=== PATIENT | male | born 1965 | race African-American/Black ===

== ENCOUNTER 2021-01-15 10:26 | Inpatient (IN) | payer OTHER ==
[2021-01-15 11:18] VITALS: BMI 33.3
[2021-01-15] MEDS ORDERED: BISMUTH SUBSALICYLATE 524 MG/30 ML PO PRN (11:47)
[2021-01-15] MEDS ORDERED: IBUPROFEN 400 MG TABLET (FP) PO PRN (11:47)
[2021-01-15] MEDS ORDERED: NICOTINE 10 MG CARTRIDGE (INHALER) IH PRN (11:47)
[2021-01-15] MEDS ORDERED: MAGNESIUM HYDROX 2400MG/30ML ORAL SUSPENSION 30 ML CUP PO PRN (11:47)
[2021-01-15] MEDS ORDERED: MAGNESIUM CITRATE 300 ML BOTTLE PO PRN (11:47)
[2021-01-15] MEDS ORDERED: ACETAMINOPHEN 325 MG TABLET (FP) PO PRN ×2 (11:47)
[2021-01-15] MEDS ORDERED: ONDANSETRON *ODT* 4 MG TABLET SL PRN (11:47)
[2021-01-15] MEDS ORDERED: MAG HYDROX/AL HYDROX/SIMETH 30 ML UNIT-DOSE CUP PO PRN (11:47)
[2021-01-15] MEDS ORDERED: MENTHOL/PHENOL 1 EACH UD MM PRN (11:47)
[2021-01-15] MEDS ORDERED: diazePAM 5 MG TABLET PO PRN (13:04)
[2021-01-15] MEDS ORDERED: diazePAM 5 MG TABLET PO ONE (13:45)
[2021-01-15] MEDS: METHOCARBAMOL 500 MG TABLET PO PRN (13:47)
[2021-01-15] MEDS: PRENATAL VITAMINS W/ FOLIC ACID TABLET (FP) PO SCH (13:52)
[2021-01-15] MEDS ORDERED: hydrOXYzine PAMOATE 25 MG CAPSULE (FP) PO SCH (14:00)
[2021-01-15 14:33] LABS: HEMATOCRIT 43.1 % (35.4-49); HEMOGLOBIN 14.8 GM/dL (11.7-16.9); MCH 32.9 pg (25.7-33.7); MCHC 34.3 g/dl (32.0-35.9); MEAN CELL VOLUME 95.9 fl (80-96); MEAN PLT VOLUME 8.5 fl (7.5-11.1); PLATELET COUNT 291 10^3/uL (134-434); RBC 4.49 M/mm3 (4.00-5.60); RDW 16.1 % (11.9-15.9); WHITE BLOOD COUNT 6.6 K/mm3 (4.0-10.0)
[2021-01-15 14:47] LABS: ALBUMIN 3.2 g/dl (3.4-5.0); BLOOD UREA NITROGEN 11.7 mg/dL (7-18); CALCIUM 9.1 mg/dL (8.5-10.1)
[2021-01-15 14:48] LABS: BILIRUBIN,TOTAL 0.6 mg/dL (0.2-1)
[2021-01-15 14:50] LABS: CREATININE 1.1 mg/dL (0.55-1.3)
[2021-01-15 14:52] LABS: TOT PROT 6.6 g/dl (6.4-8.2)
[2021-01-15] MEDS: diazePAM 5 MG TABLET PO SCH ×2 (18:06→23:09)
[2021-01-15] MEDS: MELATONIN 5 MG TABLETS PO SCH (23:09)
[2021-01-15] MEDS: THIAMINE HCL 100 MG TABLET (FP) PO SCH (23:09)
[2021-01-16] MEDS: diazePAM 5 MG TABLET PO SCH ×4 (06:25→23:16)
[2021-01-16] MEDS: hydrOXYzine PAMOATE 25 MG CAPSULE (FP) PO PRN (10:34)
[2021-01-16] MEDS: PRENATAL VITAMINS W/ FOLIC ACID TABLET (FP) PO SCH (10:35)
[2021-01-16] MEDS: METHOCARBAMOL 500 MG TABLET PO PRN (23:15)
[2021-01-16] MEDS: MELATONIN 5 MG TABLETS PO SCH (23:15)
[2021-01-16] MEDS: THIAMINE HCL 100 MG TABLET (FP) PO SCH (23:16)
[2021-01-17] MEDS: diazePAM 5 MG TABLET PO SCH ×3 (06:45→23:09)
[2021-01-17] MEDS: PRENATAL VITAMINS W/ FOLIC ACID TABLET (FP) PO SCH (09:55)
[2021-01-17] MEDS: MELATONIN 5 MG TABLETS PO SCH (23:09)
[2021-01-17] MEDS: THIAMINE HCL 100 MG TABLET (FP) PO SCH (23:09)
[2021-01-18] MEDS: diazePAM 5 MG TABLET PO SCH ×2 (05:50→17:31)
[2021-01-18] MEDS: PRENATAL VITAMINS W/ FOLIC ACID TABLET (FP) PO SCH (10:24)
[2021-01-18] MEDS: THIAMINE HCL 100 MG TABLET (FP) PO SCH (22:39)
[2021-01-18] MEDS: MELATONIN 5 MG TABLETS PO SCH (22:39)
[2021-01-18] MEDS: hydrOXYzine PAMOATE 25 MG CAPSULE (FP) PO PRN (22:39)
[2021-01-19] MEDS ORDERED: diazePAM 5 MG TABLET PO ONE (06:00)
[2021-01-19 09:26] VITALS: BP 107/60; PULSE 86; TEMP 96.4
[2021-01-19] MEDS: PRENATAL VITAMINS W/ FOLIC ACID TABLET (FP) PO SCH (11:04)
== END 2021-01-19 11:49 | disposition home or self-care (01) | DRG 774 ==
LOC: YASAS 10:26 → Y3N 12:00
PROVIDERS: ADMIT Allergy & Immunology; ATTEND Allergy & Immunology
PROC: HZ2ZZZZ Detoxification Services for Substance Abuse Treatment (ICD-10-PCS; principal; 2021-01-15)
DX: F10.230 Alcohol dependence with withdrawal, uncomplicated (principal); F14.20 Cocaine dependence, uncomplicated; F17.210 Nicotine dependence, cigarettes, uncomplicated; F31.9 Bipolar disorder, unspecified; F43.10 Post-traumatic stress disorder, unspecified; E78.5 Hyperlipidemia, unspecified; J45.909 Unspecified asthma, uncomplicated; E66.9 Obesity, unspecified; Z68.33 Body mass index [BMI] 33.0-33.9, adult; I25.2 Old myocardial infarction; Z87.898 Personal history of other specified conditions
CPT/HCPCS: 36415; 80053; 85027; 86780; C9803; U0003; U0005

== ENCOUNTER 2022-01-04 13:48 | Inpatient (IN) | payer OTHER ==
[2022-01-04 14:57] VITALS: BMI 23.7
[2022-01-04] MEDS ORDERED: MAGNESIUM HYDROX 2400MG/30ML ORAL SUSPENSION 30 ML CUP PO PRN (16:33)
[2022-01-04] MEDS ORDERED: BENZOCAINE/MENTHOL (CHLORASEPTIC ) LOZENGE MM PRN (16:33)
[2022-01-04] MEDS ORDERED: DICYCLOMINE HCL 10 MG CAPSULE PO PRN (16:33)
[2022-01-04] MEDS ORDERED: MAG HYDROX/AL HYDROX/SIMETH 30 ML UNIT-DOSE CUP PO PRN (16:33)
[2022-01-04] MEDS ORDERED: MAGNESIUM CITRATE 300 ML BOTTLE PO PRN (16:33)
[2022-01-04] MEDS ORDERED: ONDANSETRON *ODT* 4 MG TABLET SL PRN (16:33)
[2022-01-04] MEDS ORDERED: BISMUTH SUBSALICYLATE 524 MG/30 ML PO PRN (16:33)
[2022-01-04] MEDS ORDERED: LOPERAMIDE HCL 2 MG CAPSULE PO PRN (16:33)
[2022-01-04] MEDS ORDERED: ACETAMINOPHEN 325 MG TABLET (FP) PO PRN ×2 (16:33)
[2022-01-04] MEDS ORDERED: NICOTINE 10 MG CARTRIDGE (INHALER) IH PRN (16:33)
[2022-01-04] MEDS ORDERED: IBUPROFEN 600 MG TABLET (FP) PO ONE (16:54)
[2022-01-04] MEDS: IBUPROFEN 600 MG TABLET (FP) PO PRN (16:57)
[2022-01-04] MEDS: MELATONIN 5 MG TABLETS PO SCH (23:04)
[2022-01-04] MEDS: hydrOXYzine PAMOATE 25 MG CAPSULE (FP) PO SCH ×2 (23:04→23:05)
[2022-01-04] MEDS: THIAMINE HCL 100 MG TABLET (FP) PO SCH (23:05)
[2022-01-05] MEDS: hydrOXYzine PAMOATE 25 MG CAPSULE (FP) PO SCH ×5 (07:36→22:49)
[2022-01-05] MEDS: PRENATAL VITAMINS W/ FOLIC ACID TABLET (FP) PO SCH (10:50)
[2022-01-05 13:32] LABS: HEMATOCRIT 45.1 % (35.4-49); HEMOGLOBIN 15.3 GM/dL (11.7-16.9); MCH 33.5 pg (25.7-33.7); MCHC 33.9 g/dl (32.0-35.9); MEAN CELL VOLUME 98.6 fl (80-96); MEAN PLT VOLUME 8.2 fl (7.5-11.1); PLATELET COUNT 285 10^3/uL (134-434); RBC 4.57 M/mm3 (4.00-5.60); RDW 14.5 % (11.9-15.9); WHITE BLOOD COUNT 5.4 K/mm3 (4.0-10.0)
[2022-01-05 13:36] LABS: ALBUMIN 3.2 g/dl (3.4-5.0); BLOOD UREA NITROGEN 12.5 mg/dL (7-18); CALCIUM 9.2 mg/dL (8.5-10.1)
[2022-01-05 13:39] LABS: BILIRUBIN,TOTAL 0.4 mg/dL (0.2-1); TOT PROT 6.4 g/dl (6.4-8.2)
[2022-01-05] MEDS ORDERED: LORazepam 1 MG TABLET PO PRN (14:38)
[2022-01-05] MEDS: LORazepam 2 MG TABLET PO SCH ×2 (18:09→22:49)
[2022-01-05] MEDS: IBUPROFEN 600 MG TABLET (FP) PO PRN (18:10)
[2022-01-05] MEDS: MELATONIN 5 MG TABLETS PO SCH (22:49)
[2022-01-05] MEDS: METHOCARBAMOL 500 MG TABLET PO PRN (22:49)
[2022-01-05] MEDS: THIAMINE HCL 100 MG TABLET (FP) PO SCH (22:49)
[2022-01-06] MEDS: hydrOXYzine PAMOATE 25 MG CAPSULE (FP) PO SCH ×5 (06:18→22:55)
[2022-01-06] MEDS: LORazepam 2 MG TABLET PO SCH ×4 (06:18→22:54)
[2022-01-06] MEDS: IBUPROFEN 400 MG TABLET (FP) PO PRN (10:32)
[2022-01-06] MEDS: PRENATAL VITAMINS W/ FOLIC ACID TABLET (FP) PO SCH (10:33)
[2022-01-06] MEDS: METHOCARBAMOL 500 MG TABLET PO PRN (17:45)
[2022-01-06] MEDS: THIAMINE HCL 100 MG TABLET (FP) PO SCH (22:55)
[2022-01-06] MEDS: MELATONIN 5 MG TABLETS PO SCH (22:56)
[2022-01-07] MEDS: hydrOXYzine PAMOATE 25 MG CAPSULE (FP) PO SCH ×5 (05:55→22:21)
[2022-01-07] MEDS: LORazepam 1 MG TABLET PO SCH ×4 (05:55→22:21)
[2022-01-07] MEDS: PRENATAL VITAMINS W/ FOLIC ACID TABLET (FP) PO SCH (10:34)
[2022-01-07] MEDS: IBUPROFEN 600 MG TABLET (FP) PO PRN (10:36)
[2022-01-07] MEDS: MELATONIN 5 MG TABLETS PO SCH (22:21)
[2022-01-07] MEDS: THIAMINE HCL 100 MG TABLET (FP) PO SCH (22:21)
[2022-01-08] MEDS ORDERED: LORazepam 0.5 MG TABLET PO PRN
[2022-01-08] MEDS: hydrOXYzine PAMOATE 25 MG CAPSULE (FP) PO SCH ×5 (07:58→22:49)
[2022-01-08] MEDS: LORazepam 0.5 MG TABLET PO SCH ×4 (07:58→22:49)
[2022-01-08] MEDS: IBUPROFEN 400 MG TABLET (FP) PO PRN (10:16)
[2022-01-08] MEDS: PRENATAL VITAMINS W/ FOLIC ACID TABLET (FP) PO SCH (10:16)
[2022-01-08] MEDS: THIAMINE HCL 100 MG TABLET (FP) PO SCH (22:49)
[2022-01-08] MEDS: MELATONIN 5 MG TABLETS PO SCH (22:49)
[2022-01-09] MEDS ORDERED: LORazepam 0.5 MG TABLET PO ONE (05:00)
[2022-01-09 06:17] VITALS: RESP 18
[2022-01-09] MEDS: hydrOXYzine PAMOATE 25 MG CAPSULE (FP) PO SCH ×2 (06:36→09:54)
[2022-01-09 09:34] VITALS: BP 103/62; PULSE 83; TEMP 97.8
[2022-01-09] MEDS: PRENATAL VITAMINS W/ FOLIC ACID TABLET (FP) PO SCH (09:54)
== END 2022-01-09 11:10 | disposition other institution (70) | DRG 774 ==
LOC: YASAS 13:48 → Y3N 17:11
PROVIDERS: ADMIT Allergy & Immunology; ATTEND Surgery
PROC: HZ2ZZZZ Detoxification Services for Substance Abuse Treatment (ICD-10-PCS; principal; 2022-01-04)
DX: F10.230 Alcohol dependence with withdrawal, uncomplicated (principal); F14.20 Cocaine dependence, uncomplicated; F17.210 Nicotine dependence, cigarettes, uncomplicated; F31.9 Bipolar disorder, unspecified; F43.10 Post-traumatic stress disorder, unspecified; E87.8 Other disorders of electrolyte and fluid balance, not elsewhere classified; E88.09 Other disorders of plasma-protein metabolism, not elsewhere classified; E78.5 Hyperlipidemia, unspecified; I25.2 Old myocardial infarction; Z68.23 Body mass index [BMI] 23.0-23.9, adult
CPT/HCPCS: 36415; 80053; 82435; 85027; 86780; 87811; C9803-CS; U0003; U0005

== ENCOUNTER 2022-01-09 11:27 | Inpatient (IN) | payer OTHER ==
[2022-01-09] MEDS ORDERED: MAGNESIUM CITRATE 300 ML BOTTLE PO PRN (13:06)
[2022-01-09] MEDS ORDERED: guaiFENesin 200 MG/10 ML 10 ML UNIT-DOSE CUPS PO PRN (13:06)
[2022-01-09] MEDS ORDERED: BENZOCAINE/MENTHOL (CHLORASEPTIC ) LOZENGE MM PRN (13:06)
[2022-01-09] MEDS ORDERED: MAG HYDROX/AL HYDROX/SIMETH 30 ML UNIT-DOSE CUP PO PRN (13:06)
[2022-01-09] MEDS ORDERED: ACETAMINOPHEN 325 MG TABLET (FP) PO PRN (13:06)
[2022-01-09] MEDS ORDERED: IBUPROFEN 400 MG TABLET (FP) PO PRN (13:06)
[2022-01-09] MEDS ORDERED: LOPERAMIDE HCL 2 MG CAPSULE PO PRN (13:06)
[2022-01-09] MEDS ORDERED: P-EPHED 60MG/TRIPROLIDI 2.5MG TABLET PO PRN (13:06)
[2022-01-09] MEDS ORDERED: MAGNESIUM HYDROX 2400MG/30ML ORAL SUSPENSION 30 ML CUP PO PRN (13:06)
[2022-01-09] MEDS: THIAMINE HCL 100 MG TABLET (FP) PO SCH (21:31)
[2022-01-09] MEDS: MELATONIN 5 MG TABLETS PO PRN (21:31)
[2022-01-10] MEDS: PRENATAL VITAMINS W/ FOLIC ACID TABLET (FP) PO SCH (09:58)
[2022-01-10] MEDS: ALBUTEROL SO4 HFA INHALER IH PRN (10:00)
[2022-01-10] MEDS: hydrOXYzine PAMOATE 50 MG CAPSULE (FP) PO PRN ×2 (10:59→21:50)
[2022-01-10] MEDS: THIAMINE HCL 100 MG TABLET (FP) PO SCH (21:50)
[2022-01-10] MEDS: QUEtiapine FUMARATE 50 MG TABLET PO SCH (21:51)
[2022-01-11] MEDS: PRENATAL VITAMINS W/ FOLIC ACID TABLET (FP) PO SCH (09:18)
[2022-01-11] MEDS: THIAMINE HCL 100 MG TABLET (FP) PO SCH (21:14)
[2022-01-11] MEDS: QUEtiapine FUMARATE 50 MG TABLET PO SCH (21:14)
[2022-01-11] MEDS: hydrOXYzine PAMOATE 50 MG CAPSULE (FP) PO PRN (21:15)
[2022-01-11] MEDS: MELATONIN 5 MG TABLETS PO PRN (21:15)
[2022-01-12] MEDS: PRENATAL VITAMINS W/ FOLIC ACID TABLET (FP) PO SCH (09:27)
[2022-01-12] MEDS: hydrOXYzine PAMOATE 50 MG CAPSULE (FP) PO PRN (13:33)
[2022-01-12] MEDS: MELATONIN 5 MG TABLETS PO PRN (21:15)
[2022-01-12] MEDS: THIAMINE HCL 100 MG TABLET (FP) PO SCH (21:15)
[2022-01-12] MEDS: QUEtiapine FUMARATE 50 MG TABLET PO SCH (21:17)
[2022-01-13] MEDS: PRENATAL VITAMINS W/ FOLIC ACID TABLET (FP) PO SCH (10:03)
[2022-01-13] MEDS: hydrOXYzine PAMOATE 50 MG CAPSULE (FP) PO PRN ×2 (10:03→21:12)
[2022-01-13] MEDS: THIAMINE HCL 100 MG TABLET (FP) PO SCH (21:11)
[2022-01-13] MEDS: MELATONIN 5 MG TABLETS PO PRN (21:11)
[2022-01-13] MEDS: QUEtiapine FUMARATE 50 MG TABLET PO SCH (21:11)
[2022-01-14] MEDS: PRENATAL VITAMINS W/ FOLIC ACID TABLET (FP) PO SCH (09:58)
[2022-01-14] MEDS: MELATONIN 5 MG TABLETS PO PRN (21:30)
[2022-01-14] MEDS: THIAMINE HCL 100 MG TABLET (FP) PO SCH (21:30)
[2022-01-14] MEDS: hydrOXYzine PAMOATE 50 MG CAPSULE (FP) PO PRN (21:30)
[2022-01-14] MEDS: QUEtiapine FUMARATE 50 MG TABLET PO SCH (21:32)
[2022-01-15] MEDS: PRENATAL VITAMINS W/ FOLIC ACID TABLET (FP) PO SCH (10:18)
[2022-01-15] MEDS: hydrOXYzine PAMOATE 50 MG CAPSULE (FP) PO PRN ×2 (10:18→21:17)
[2022-01-15] MEDS: THIAMINE HCL 100 MG TABLET (FP) PO SCH (21:17)
[2022-01-15] MEDS: MELATONIN 5 MG TABLETS PO PRN (21:17)
[2022-01-15] MEDS: QUEtiapine FUMARATE 50 MG TABLET PO SCH (21:18)
[2022-01-16] MEDS: PRENATAL VITAMINS W/ FOLIC ACID TABLET (FP) PO SCH (09:56)
[2022-01-16] MEDS ORDERED: NICOTINE 10 MG CARTRIDGE (INHALER) IH SCH ×2 (11:30→11:45)
[2022-01-16] MEDS: THIAMINE HCL 100 MG TABLET (FP) PO SCH (21:11)
[2022-01-16] MEDS: MELATONIN 5 MG TABLETS PO PRN (21:12)
[2022-01-16] MEDS: QUEtiapine FUMARATE 50 MG TABLET PO SCH (21:12)
[2022-01-16] MEDS: hydrOXYzine PAMOATE 50 MG CAPSULE (FP) PO PRN (21:13)
[2022-01-17] MEDS: PRENATAL VITAMINS W/ FOLIC ACID TABLET (FP) PO SCH (10:06)
[2022-01-17] MEDS: hydrOXYzine PAMOATE 50 MG CAPSULE (FP) PO PRN ×2 (10:06→21:10)
[2022-01-17] MEDS: THIAMINE HCL 100 MG TABLET (FP) PO SCH (21:10)
[2022-01-17] MEDS: MELATONIN 5 MG TABLETS PO PRN (21:10)
[2022-01-17] MEDS: QUEtiapine FUMARATE 50 MG TABLET PO SCH (21:16)
[2022-01-18] MEDS: hydrOXYzine PAMOATE 50 MG CAPSULE (FP) PO PRN ×2 (10:23→21:34)
[2022-01-18] MEDS: PRENATAL VITAMINS W/ FOLIC ACID TABLET (FP) PO SCH (10:23)
[2022-01-18] MEDS: ALBUTEROL SO4 HFA INHALER IH PRN (11:41)
[2022-01-18] MEDS: THIAMINE HCL 100 MG TABLET (FP) PO SCH (21:34)
[2022-01-18] MEDS: QUEtiapine FUMARATE 50 MG TABLET PO SCH (21:34)
[2022-01-18] MEDS: MELATONIN 5 MG TABLETS PO PRN (21:35)
[2022-01-19] MEDS: PRENATAL VITAMINS W/ FOLIC ACID TABLET (FP) PO SCH (10:09)
[2022-01-19] MEDS: hydrOXYzine PAMOATE 50 MG CAPSULE (FP) PO PRN ×2 (10:09→21:32)
[2022-01-19] MEDS: QUEtiapine FUMARATE 50 MG TABLET PO SCH (21:32)
[2022-01-19] MEDS: MELATONIN 5 MG TABLETS PO PRN (21:32)
[2022-01-19] MEDS: THIAMINE HCL 100 MG TABLET (FP) PO SCH (21:32)
[2022-01-20] MEDS: PRENATAL VITAMINS W/ FOLIC ACID TABLET (FP) PO SCH (09:59)
[2022-01-20] MEDS: MELATONIN 5 MG TABLETS PO PRN (21:23)
[2022-01-20] MEDS: QUEtiapine FUMARATE 50 MG TABLET PO SCH (21:23)
[2022-01-20] MEDS: THIAMINE HCL 100 MG TABLET (FP) PO SCH (21:23)
[2022-01-21] MEDS: PRENATAL VITAMINS W/ FOLIC ACID TABLET (FP) PO SCH (09:50)
[2022-01-21] MEDS: hydrOXYzine PAMOATE 50 MG CAPSULE (FP) PO PRN ×2 (09:51→21:08)
[2022-01-21] MEDS: MELATONIN 5 MG TABLETS PO PRN (21:08)
[2022-01-21] MEDS: QUEtiapine FUMARATE 50 MG TABLET PO SCH (21:08)
[2022-01-21] MEDS: THIAMINE HCL 100 MG TABLET (FP) PO SCH (21:08)
[2022-01-22] MEDS: ALBUTEROL SO4 HFA INHALER IH PRN (09:48)
[2022-01-22] MEDS: PRENATAL VITAMINS W/ FOLIC ACID TABLET (FP) PO SCH (09:48)
[2022-01-22] MEDS: hydrOXYzine PAMOATE 50 MG CAPSULE (FP) PO PRN (09:48)
[2022-01-22] MEDS: MELATONIN 5 MG TABLETS PO PRN (21:18)
[2022-01-22] MEDS: THIAMINE HCL 100 MG TABLET (FP) PO SCH (21:18)
[2022-01-22] MEDS: QUEtiapine FUMARATE 50 MG TABLET PO SCH (21:19)
[2022-01-23 07:16] VITALS: BP 118/73; PULSE 86; RESP 16; TEMP 98
== END 2022-01-23 08:50 | disposition home or self-care (01) | DRG 772 ==
LOC: YASAS 11:27 → Y3E 11:31
PROVIDERS: ADMIT Allergy & Immunology; ATTEND Psychiatry & Neurology Pain Medicine
PROC: HZ42ZZZ Group Counseling for Substance Abuse Treatment, Cognitive-Behavioral (ICD-10-PCS; principal; 2022-01-09)
DX: F10.20 Alcohol dependence, uncomplicated (principal); F14.20 Cocaine dependence, uncomplicated; F17.210 Nicotine dependence, cigarettes, uncomplicated; F31.9 Bipolar disorder, unspecified; F43.10 Post-traumatic stress disorder, unspecified; J45.909 Unspecified asthma, uncomplicated; E78.5 Hyperlipidemia, unspecified; I25.2 Old myocardial infarction

== ENCOUNTER 2022-10-03 21:25 | Inpatient (IN) | payer OTHER ==
[2022-10-03 22:07] VITALS: BMI 29.8
[2022-10-03] MEDS ORDERED: chlordiazePOXIDE HCL 25 MG CAPSULE PO PRN (23:59)
[2022-10-04] MEDS ORDERED: chlordiazePOXIDE HCL 25 MG CAPSULE ONE ×3 (00:08→11:02)
[2022-10-04] MEDS ORDERED: BENZOCAINE/MENTHOL (CHLORASEPTIC ) LOZENGE MM PRN (00:09)
[2022-10-04] MEDS ORDERED: MAGNESIUM HYDROX 2400MG/30ML ORAL SUSPENSION 30 ML CUP PO PRN (00:09)
[2022-10-04] MEDS ORDERED: IBUPROFEN 600 MG TABLET (FP) PO PRN (00:09)
[2022-10-04] MEDS ORDERED: guaiFENesin 600 MG TABLET.ER (FP) PO PRN (00:09)
[2022-10-04] MEDS ORDERED: ONDANSETRON *ODT* 4 MG TABLET SL PRN (00:09)
[2022-10-04] MEDS ORDERED: NALOXONE HCL (KLOXXADO) 8 MG SPRAY NS PRN (00:09)
[2022-10-04] MEDS: chlordiazePOXIDE HCL 25 MG CAPSULE PO SCH ×6 (00:09→22:46)
[2022-10-04] MEDS ORDERED: NICOTINE POLACRILEX 2 MG GUM BUC PRN (00:09)
[2022-10-04] MEDS ORDERED: IBUPROFEN 400 MG TABLET (FP) PO PRN (00:09)
[2022-10-04] MEDS ORDERED: POLYETHYLENE GLYCOL (HEALTHYLAX) 3350 17 GM PACKET PO PRN (00:09)
[2022-10-04] MEDS ORDERED: ACETAMINOPHEN 325 MG TABLET (FP) PO PRN (00:09)
[2022-10-04] MEDS ORDERED: NALOXONE HCL 0.4 MG/ML VIAL IM PRN (00:09)
[2022-10-04] MEDS ORDERED: BENZONATATE 200 MG CAPSULE PO PRN (00:09)
[2022-10-04] MEDS ORDERED: MAG HYDROX/AL HYDROX/SIMETH 30 ML UNIT-DOSE CUP PO PRN (00:09)
[2022-10-04] MEDS ORDERED: DICYCLOMINE HCL 10 MG CAPSULE PO PRN (00:09)
[2022-10-04] MEDS ORDERED: PRENATAL VITAMINS W/ FOLIC ACID TABLET (FP) PO ONE (11:03)
[2022-10-04] MEDS ORDERED: NICOTINE 14 MG/24 HOURS TOPICAL PATCH TD ONE (11:03)
[2022-10-04] MEDS: NICOTINE 14 MG/24 HOURS TOPICAL PATCH TD SCH (11:16)
[2022-10-04] MEDS: PRENATAL VITAMINS W/ FOLIC ACID TABLET (FP) PO SCH (11:43)
[2022-10-04] MEDS ORDERED: MELATONIN 5 MG TABLETS PO SCH (22:00)
[2022-10-04] MEDS: THIAMINE HCL 100 MG TABLET (FP) PO SCH (22:47)
[2022-10-05] MEDS: chlordiazePOXIDE HCL 25 MG CAPSULE PO SCH ×4 (05:41→23:10)
[2022-10-05] MEDS ORDERED: ALBUTEROL SO4 HFA INHALER IH PRN (09:03)
[2022-10-05 09:13] LABS: HEMATOCRIT 41.2 % (35.4-49); HEMOGLOBIN 13.4 GM/dL (11.7-16.9); MCH 31.3 pg (25.7-33.7); MCHC 32.5 g/dl (32.0-35.9); MEAN CELL VOLUME 96.3 fl (80-96); MEAN PLT VOLUME 9.3 fl (7.5-11.1); PLATELET COUNT 277 10^3/uL (134-434); RBC 4.28 M/mm3 (4.00-5.60); RDW 14.9 % (11.9-15.9); WHITE BLOOD COUNT 6.2 K/mm3 (4.0-10.0)
[2022-10-05 09:21] LABS: POTASSIUM 5.9 mmol/L (3.5-5.1)
[2022-10-05 09:42] LABS: CALCIUM 9.2 mg/dL (8.5-10.1)
[2022-10-05 09:43] LABS: BLOOD UREA NITROGEN 18.8 mg/dL (7-18)
[2022-10-05 09:48] LABS: BILIRUBIN,TOTAL 0.3 mg/dL (0.2-1); TOT PROT 5.9 g/dl (6.4-8.2)
[2022-10-05] MEDS: NICOTINE 14 MG/24 HOURS TOPICAL PATCH TD SCH (11:00)
[2022-10-05] MEDS: PRENATAL VITAMINS W/ FOLIC ACID TABLET (FP) PO SCH (11:00)
[2022-10-05] MEDS: QUEtiapine FUMARATE 50 MG TABLET PO SCH (23:10)
[2022-10-05] MEDS: THIAMINE HCL 100 MG TABLET (FP) PO SCH (23:10)
[2022-10-06] MEDS ORDERED: chlordiazePOXIDE HCL 10 MG CAPSULE PO PRN
[2022-10-06] MEDS: chlordiazePOXIDE HCL 10 MG CAPSULE PO SCH ×4 (05:42→22:51)
[2022-10-06] MEDS: PRENATAL VITAMINS W/ FOLIC ACID TABLET (FP) PO SCH (11:26)
[2022-10-06] MEDS: hydrOXYzine PAMOATE 25 MG CAPSULE (FP) PO PRN (11:27)
[2022-10-06] MEDS: NICOTINE 14 MG/24 HOURS TOPICAL PATCH TD SCH (11:29)
[2022-10-06] MEDS: LOPERAMIDE HCL 2 MG CAPSULE PO PRN ×2 (11:30→17:54)
[2022-10-06] MEDS ORDERED: SODIUM POLYSTYRENE SULFONATE 15 GM/60 ML BOTTLE PO ONE (12:45)
[2022-10-06] MEDS: BISMUTH SUBSALICYLATE 524 MG/30 ML PO PRN (18:02)
[2022-10-06] MEDS: QUEtiapine FUMARATE 50 MG TABLET PO SCH (22:51)
[2022-10-06] MEDS: THIAMINE HCL 100 MG TABLET (FP) PO SCH (22:51)
[2022-10-07] MEDS: chlordiazePOXIDE HCL 10 MG CAPSULE PO SCH ×2 (06:05→18:25)
[2022-10-07 06:42] VITALS: RESP 18
[2022-10-07] MEDS: NICOTINE 14 MG/24 HOURS TOPICAL PATCH TD SCH (10:37)
[2022-10-07] MEDS: PRENATAL VITAMINS W/ FOLIC ACID TABLET (FP) PO SCH (10:37)
[2022-10-07] MEDS: BISMUTH SUBSALICYLATE 524 MG/30 ML PO PRN (10:38)
[2022-10-07] MEDS: hydrOXYzine PAMOATE 25 MG CAPSULE (FP) PO PRN ×2 (10:38→21:49)
[2022-10-07] MEDS: THIAMINE HCL 100 MG TABLET (FP) PO SCH (22:27)
[2022-10-07] MEDS: QUEtiapine FUMARATE 50 MG TABLET PO SCH (22:27)
[2022-10-08] MEDS ORDERED: chlordiazePOXIDE HCL 10 MG CAPSULE PO ONE (05:00)
[2022-10-08 05:55] VITALS: TEMP 97.7
[2022-10-08 07:58] VITALS: BP 109/68; PULSE 75
== END 2022-10-08 09:17 | disposition home or self-care (01) | DRG 774 ==
LOC: YASAS 21:25 → Y6N 10-04 12:21
PROVIDERS: ADMIT Allergy & Immunology; ATTEND Surgery
PROC: HZ2ZZZZ Detoxification Services for Substance Abuse Treatment (ICD-10-PCS; principal; 2022-10-04)
DX: F10.230 Alcohol dependence with withdrawal, uncomplicated (principal); F14.20 Cocaine dependence, uncomplicated; F17.210 Nicotine dependence, cigarettes, uncomplicated; F31.9 Bipolar disorder, unspecified; F43.10 Post-traumatic stress disorder, unspecified; E87.5 Hyperkalemia; E78.5 Hyperlipidemia, unspecified; E11.9 Type 2 diabetes mellitus without complications; J45.909 Unspecified asthma, uncomplicated; F19.282 Other psychoactive substance dependence with psychoactive substance-induced sleep disorder; E86.0 Dehydration; M54.50 Low back pain, unspecified; G89.29 Other chronic pain; Z62.810 Personal history of physical and sexual abuse in childhood; Z91.410 Personal history of adult physical and sexual abuse; I25.2 Old myocardial infarction
CPT/HCPCS: 36415; 80053; 82962; 84132; 85027; 86780; 87635; 93005; 93010

== ENCOUNTER 2024-05-24 12:42 | Inpatient (IN) | payer OTHER ==
[2024-05-24 12:58] VITALS: BMI 24.9
[2024-05-24] MEDS ORDERED: BENZOCAINE/MENTHOL (CHLORASEPTIC ) LOZENGE MM PRN (14:26)
[2024-05-24] MEDS ORDERED: IBUPROFEN 600 MG TABLET (FP) PO PRN (14:26)
[2024-05-24] MEDS ORDERED: IBUPROFEN 400 MG TABLET (FP) PO PRN (14:26)
[2024-05-24] MEDS ORDERED: guaiFENesin 600 MG TABLET.ER (FP) PO PRN (14:26)
[2024-05-24] MEDS ORDERED: MAGNESIUM HYDROX 2400MG/30ML ORAL SUSPENSION 30 ML CUP PO PRN (14:26)
[2024-05-24] MEDS ORDERED: NICOTINE POLACRILEX 2 MG GUM BUC PRN (14:26)
[2024-05-24] MEDS ORDERED: DICYCLOMINE HCL 10 MG CAPSULE PO PRN (14:26)
[2024-05-24] MEDS ORDERED: MAG HYDROX/AL HYDROX/SIMETH 30 ML UNIT-DOSE CUP PO PRN (14:26)
[2024-05-24] MEDS ORDERED: ONDANSETRON *ODT* 4 MG TABLET SL PRN (14:26)
[2024-05-24] MEDS ORDERED: POLYETHYLENE GLYCOL (HEALTHYLAX) 3350 17 GM PACKET PO PRN (14:26)
[2024-05-24] MEDS ORDERED: LOPERAMIDE HCL 2 MG CAPSULE PO PRN (14:26)
[2024-05-24] MEDS ORDERED: NICOTINE POLACRILEX 2 MG LOZENGE BC PRN (14:26)
[2024-05-24] MEDS ORDERED: NALOXONE (NARCAN) HCL 4 MG/0.1 ML SPRAY NS PRN (14:26)
[2024-05-24] MEDS ORDERED: propRANOLol HCL 10 MG TABLET ONE (15:26)
[2024-05-24] MEDS: propRANOLol HCL 10 MG TABLET PO ONE (15:28)
[2024-05-24] MEDS: ALBUTEROL SO4 HFA INHALER IH PRN (18:16)
[2024-05-24] MEDS: METHOCARBAMOL 500 MG TABLET PO PRN (18:17)
[2024-05-24] MEDS: ACETAMINOPHEN 325 MG TABLET (FP) PO PRN (18:18)
[2024-05-24] MEDS: BENZONATATE 200 MG CAPSULE PO PRN (18:18)
[2024-05-24] MEDS: MELATONIN 5 MG TABLETS PO SCH (22:33)
[2024-05-24] MEDS: ATORVASTATIN CA 20 MG TABLET (FP) PO SCH (22:33)
[2024-05-24] MEDS: THIAMINE 100 MG TABLET PO SCH (22:34)
[2024-05-25] MEDS: chlordiazePOXIDE HCL 25 MG CAPSULE PO ONE (08:46)
[2024-05-25] MEDS: PRENATAL VITAMINS W/ FOLIC ACID TABLET (FP) PO SCH (10:35)
[2024-05-25] MEDS: chlordiazePOXIDE HCL 25 MG CAPSULE PO SCH (10:35)
[2024-05-25] MEDS: ASPIRIN COATED 81 MG TABLET.EC PO SCH (10:35)
[2024-05-25 11:09] LABS: CHLORIDE 108 mmol/L (98-107); POTASSIUM 4.6 mmol/L (3.5-5.1); SODIUM 140 mmol/L (136-145)
[2024-05-25 11:10] LABS: HEMATOCRIT 39.8 % (35.4-49); HEMOGLOBIN 13.3 GM/dL (11.7-16.9); MCH 31.7 pg (25.7-33.7); MCHC 33.4 g/dl (32.0-35.9); MEAN CELL VOLUME 94.7 fl (80-96); PLATELET COUNT 288 10^3/uL (134-434); RDW 14.4 % (11.9-15.9); WHITE BLOOD COUNT 5.5 K/mm3 (4.0-10.0)
[2024-05-25 11:11] LABS: ALBUMIN 2.5 g/dl (3.4-5.0); ANION GAP 6 mmol/L (4-13); CALCIUM 8.7 mg/dL (8.5-10.1); CO2 26 mmol/L (21-32)
[2024-05-25 11:12] LABS: BLOOD UREA NITROGEN 11.8 mg/dL (7-18); GLUCOSE,RANDOM 124 mg/dL (74-106)
[2024-05-25 11:14] LABS: SGPT/ALT 18 U/L (13-61)
[2024-05-25 11:15] LABS: CREATININE 0.7 mg/dL (0.55-1.3); SGOT/AST 16 U/L (15-37)
[2024-05-25 11:16] LABS: BILIRUBIN,TOTAL 0.2 mg/dL (0.2-1); TOT PROT 5.6 g/dl (6.4-8.2)
[2024-05-25 11:17] LABS: ALK PHOS 70 U/L (45-117)
[2024-05-26] MEDS: BISMUTH SUBSALICYLATE 262 MG/15 ML BTL PO PRN (17:51)
[2024-05-27] MEDS: chlordiazePOXIDE HCL 25 MG CAPSULE PO SCH (05:24)
[2024-05-27] MEDS: NALTREXONE HCL 50 MG TABLET PO SCH (10:19)
[2024-05-27] MEDS: chlordiazePOXIDE HCL 25 MG CAPSULE PO PRN (18:03)
[2024-05-28] MEDS ORDERED: chlordiazePOXIDE HCL 10 MG CAPSULE PO PRN
[2024-05-28] MEDS: chlordiazePOXIDE HCL 10 MG CAPSULE PO SCH (06:30)
[2024-05-29] MEDS: chlordiazePOXIDE HCL 10 MG CAPSULE PO SCH (06:48)
[2024-05-30] MEDS: chlordiazePOXIDE HCL 10 MG CAPSULE PO ONE (05:37)
[2024-05-30 09:30] VITALS: BP 128/68; PULSE 90; RESP 18; TEMP 98.9
== END 2024-05-30 12:50 | disposition other institution (70) | DRG 774 ==
LOC: YASAS 12:42 → Y6N 15:16
PROVIDERS: ADMIT Allergy & Immunology; ATTEND Allergy & Immunology
PROC: HZ2ZZZZ Detoxification Services for Substance Abuse Treatment (ICD-10-PCS; principal; 2024-05-24)
DX: F10.230 Alcohol dependence with withdrawal, uncomplicated (principal); F14.20 Cocaine dependence, uncomplicated; F17.210 Nicotine dependence, cigarettes, uncomplicated; F19.282 Other psychoactive substance dependence with psychoactive substance-induced sleep disorder; E78.2 Mixed hyperlipidemia; J45.20 Mild intermittent asthma, uncomplicated; I25.2 Old myocardial infarction; Z59.00 Homelessness unspecified
CPT/HCPCS: 0241U-QW; 36415; 80053; 80305; 80307; 82962; 85027; 86780; 93005; 93010